=== PATIENT | female | born 1990 | race Hispanic/Latino ===

== ENCOUNTER 2020-06-02 16:42 | Emergency (ER) | payer OTHER ==
[~2020-06-02] VITALS: Ht 157.5 cm; Wt 117.9 kg
[2020-06-02] MEDS ORDERED: AUGMENTIN 875-1 EACH PO (17:21)
[2020-06-02] MEDS ORDERED: CORTISPORIN-TC10 M1 LEFT EAR (17:21)
== END 2020-06-02 17:30 | disposition home or self-care (01) ==
LOC: FSED 17:10
DX: H60.92 Unspecified otitis externa, left ear (principal)
CPT/HCPCS: 99282